=== PATIENT | female | born 1945 | race Caucasian/White ===

== ENCOUNTER 2023-12-03 08:06 | Emergency (ER) | payer MEDICARE, OTHER, SELFPAY ==
[2023-12-03] MEDS ORDERED: fentaNYL 50 mcg/mL 1 mL Vial ONE (10:01)
[2023-12-03] MEDS ORDERED: Ondansetron PF 4 MG/2 ML Vial ONE (10:02)
[2023-12-03] MEDS ORDERED: Bupivacaine 0.25% 10 ML VIAL ONE (10:04)
[2023-12-03 10:06] LABS: #Basophils 0.03 10x3/uL (0.0-0.2); %Basophils 0.6 % (0.0-1.0); %Eosinophils 1.5 % (0.0-10.0); %Lymphocytes 20.6 % (21.0-51.0); %Monocytes 9.4 % (0.0-10.0); %Neutrophils 67.7 % (42.0-75.0); Hemoglobin 12.6 g/dL (12.0-16.0); Mean Corpuscular HGB CONC 32.3 g/dL (32.0-36.0); Mean Corpuscular Hemoglobin 31.5 pg (27.0-31.0); Mean Corpuscular Volume 97.5 fL (78.0-98.0); Mean Platelet Volume 10.6 fL (7.4-10.4); Platelet Count 219 10x3/uL (130-400); RBC Distribution Width 12.7 % (11.5-14.5)
[2023-12-03] MEDS ORDERED: Lidocaine 1% PF 5 ML VIAL ONE ×2 (10:18→10:45)
[2023-12-03 10:23] LABS: ALT (SGPT) 27 U/L (8-55); AST (SGOT) 94 U/L (5-34); Albumin 3.1 g/dL (3.4-4.8); Alkaline Phosphatase 156 U/L (40-110); Anion Gap 13 mmol/L (10-20); BUN (Urea Nitrogen) 10 mg/dL (9.8-20.1); Bilirubin, Total 0.7 mg/dL (0.2-1.2); Calc. Creatinine Clearance 0 mL/min (70-130); Calcium 8.5 mg/dL (7.8-10.44); Carbon Dioxide 23 mmol/L (23-31); Chloride 110 mmol/L (98-107); Estimated GFR 86; Globulin 2.3 g/dL (2.4-3.5); Glucose 105 mg/dL (83-110); Protein, Total 5.4 g/dL (5.8-8.1); Sodium 142 mmol/L (136-145)
[2023-12-03 10:36] LABS: PTT 32.4 sec (22.9-36.1); Prothrombin Time 13.5 sec (12.0-14.7)
[2023-12-03] MEDS ORDERED: Morphine 4 MG/ML VIAL ONE (11:35)
[2023-12-03] MEDS ORDERED: HYDROcodone/Acetaminophen 5/325 mg Tablet ONE (12:39)
== END 2023-12-03 13:27 | disposition home or self-care (01) ==
LOC: ERS 08:06
DX: S52.501A Unspecified fracture of the lower end of right radius, initial encounter for closed fracture (principal); S52.611A Displaced fracture of right ulna styloid process, initial encounter for closed fracture; S60.211A Contusion of right wrist, initial encounter; N18.9 Chronic kidney disease, unspecified; W01.0XXA Fall on same level from slipping, tripping and stumbling without subsequent striking against object, initial encounter; Y92.009 Unspecified place in unspecified non-institutional (private) residence as the place of occurrence of the external cause
CPT/HCPCS: 25605; 36415; 70450; 71045; 72125; 80053; 85025; 85610; 85730; 93005; 96374; 96375; J0665; J2270; J2405; J3010